=== PATIENT | male | born 1995 | race African-American/Black ===

== ENCOUNTER 2017-08-10 08:55 | Emergency (ER) | payer OTHER ==
[~2017-08-10] VITALS: Ht 182.9 cm; Wt 156.5 kg
[2017-08-10 09:00] VITALS: BP 147/96
[2017-08-10] MEDS ORDERED: IBUP400T18 PO (09:14)
--- NOTE | 2017-08-10 09:14 | PHYS DOC ---
Adult General HPI HPI Chief complaint right wrist pain History of present illness: 22-year-old male with a history of hypertension and asthma presenting to the emergency department today with right wrist pain after injuring it while at work. He was working on a tire when a tool hit his right wrist. Since the injury he has had sharp shooting pain that is mild to moderate nonradiating and without alleviating factors. It is associated with mild amount of swelling without ecchymosis. He denies any pain in his elbow more proximally. He states he has normal motor and sensation of the hand. He does report a mild amount of tingling along the lateral (ulnar) portion of his right wrist (but not in hand). Past medical history hypertension and asthma Surgeries: Appendicitis Allergies: Vicodin Social history: Nondrinker Review of systems is negative for elbow pain or shoulder pain more proximally. He denies any other injuries. All other review of systems is negative unless otherwise noted in history of present illness. ED course: 22-year-old male presenting to the emergency department with right wrist pain. Upon arrival x-rays obtained. On examination of the hand the patient has normal sensation in all nerve distributions of the hand but does endorse a mild amount of numbness along the right ulnar portion of his wrist. He has 2 second cap refill in the hand with normal motor function of the hand including the ability to make an A-OK, cross fingers and give a thumbs up. He has a mildly tender scaphoid bone on the dorsal (snuff box) aspect of his hand, not tender on the volar aspect. The elbow has normal range of motion is nontender to palpation. No other injuries identified. The patient was given ibuprofen and ice for pain control. X-rays reviewed by myself. Neg xrays. Given the mild tenderness in the snuffbox area, the patient was placed in a thumb spica splint to follow-up with his doctor in 7 days for repeat x-rays and reexamination. The patient was then discharged home in stable condition to follow up with their primary care physician. They were to return if their symptoms worsened or if they were concerned for any reason. [id number] discharge instructions and return precautions were given. Patient's questions were answered to their satisfaction. Patient is comfortable with plan. Review of Systems Review of Systems SEE ABOVE. Physical Exam Physical Exam SEE ABOVE Constitutional: Well developed, well nourished, no acute distress, non-toxic appearance. [] HENT: Normocephalic, atraumatic, bilateral external ears normal, oropharynx moist, no oral exudates, nose normal. [] Eyes: PERRLA, EOMI, conjunctiva normal, no discharge. [] Neck: Normal range of motion, no tenderness, supple, no stridor. [] Cardiovascular:Heart rate regular rhythm, no murmur [] Lungs & Thorax: Bilateral breath sounds clear to auscultation [] Abdomen: Bowel sounds normal, soft, no tenderness, no masses, no pulsatile masses. [] Skin: Warm, dry, no erythema, no rash. [] Back: No tenderness, no CVA tenderness. [] Extremities: see above. Neurologic: Alert and oriented X 3, normal motor function, normal sensory function, no focal deficits noted. [] Psychologic: Affect normal, judgement normal, mood normal. [] EKG EKG [] Radiology/Procedures Radiology/Procedures [] Course & Med Decision Making Course & Med Decision Making Pertinent Labs and Imaging studies reviewed. (See chart for details) [] Dragon Disclaimer Dragon Disclaimer This electronic medical record was generated, in whole or in part, using a voice recognition dictation system. Departure Departure: Impression: Primary Impression: Right wrist pain Disposition: 01 HOME, SELF-CARE Condition: STABLE Referrals: PCPMIRLAN[facility] (PCP) Patient Instructions: Wrist Pain, [id number] Additional Instructions: Thank you for allowing us to participate in your care today. Followup with your primary care physician in 7 days for repeat x-rays and repeat examination. Call your Primary Doctor tomorrow and inform them of your visit today. If you do not have a primary care provider you can ask for a list of our primary care providers. Return to the emergency department you have any new or concerning findings. This should be evaluated by the primary care physician and any necessary consulting services for continued management within a few days after discharge. Return to emergency room if you have any new or concerning symptoms including but not limited to fever, chills, nausea, vomiting, intractable pain, any new rashes, chest pain, shortness of air, uncontrolled bleeding, difficulty breathing, and/or vision loss. Scripts Ibuprofen (IBUPROFEN) 400 Mg Tablet 1 TAB PO PRN Q8HRS Y for PAIN, #20 TAB Prov: DEWEY STALLWORTH MD 08/10/17 DEWEY STALLWORTH MD Aug 10, 2017 09:14
--- NOTE | 2017-08-10 09:31 | RAD ---
WRIST 3V RIGHT Clinical Indication: pain Comparison: None. Findings: No acute fracture or malalignment. Joint spaces are maintained. Bony mineralization is normal for the patient's age. No significant soft tissue abnormality. No radiopaque foreign body. IMPRESSION: No acute fracture or malalignment.
[2017-08-10] MEDS ORDERED: IBUPROFEN 400 MG TABLET. PO ONE (09:40)
== END 2017-08-10 09:48 | disposition home or self-care (01) ==
LOC: ER 08:55
DX: M25.531 Pain in right wrist (principal); I10 Essential (primary) hypertension; J45.909 Unspecified asthma, uncomplicated; Z88.5 Allergy status to narcotic agent; W22.8XXA Striking against or struck by other objects, initial encounter; Y93.89 Activity, other specified; Y99.8 Other external cause status; Y92.89 Other specified places as the place of occurrence of the external cause
CPT/HCPCS: 29125; 73110; 99284-25

== ENCOUNTER 2019-03-28 05:27 | Emergency (ER) | payer SELFPAY ==
[~2019-03-28] VITALS: Ht 182.9 cm; Wt 172.4 kg
[2019-03-28 05:27] VITALS: BP 161/80
[~2019-03-28 05:27] MED LIST: IBUP400T18 PO
--- NOTE | 2019-03-28 05:38 | ED.ADGEN ---
Past History Past Medical History: Asthma, Hypertension Past Surgical History: Appendectomy Alcohol Use: None Drug Use: None Adult General Chief Complaint Chief Complaint ".. I got this spot at the top of my crack.. I ve had it before.. it got an irritation.. a little rash area..." HPI HPI Patient is a 23 year old male who presents with above hx and complaints area of cellulitis at the top of his gluteal crease. Patient states area. Patient has been present for the past 2 days. No history of trauma. No history of immunosuppression. No history of ill contacts. Patient does not remember his last tetanus. He normally follows with Dr. Dotson. No history of colitis. No history of Crohn's. Patient inflammatory bowel disorder. No other lesions on his body. Review of Systems Review of Systems Constitutional: Denies fever or chills [] Eyes: Denies change in visual acuity, redness, or eye pain [] HENT: Denies nasal congestion or sore throat [] Respiratory: Denies cough or shortness of breath [] Cardiovascular: No additional information not addressed in HPI [] GI: Denies abdominal pain, nausea, vomiting, bloody stools or diarrhea [] : Denies dysuria or hematuria [] Musculoskeletal: Denies back pain or joint pain [] Integument: Denies rash or skin lesions []except complaints of the cellulitis and gluteal crease Neurologic: Denies headache, focal weakness or sensory changes [] Endocrine: Denies polyuria or polydipsia [] All other systems were reviewed and found to be within normal limits, except as documented in this note. Family History Family History Noncontributory Current Medications Current Medications Current Medications Medications (Trade) Dose Ordered Sig/Shimon Start Time Stop Time Status Last Admin Dose Admin Diphtheria/ Tetanus/Acell Pertussis (Boostrix) 0.5 ml ONCE ONCE 03/28/19 07:00 03/28/19 06:46 DC 03/28/19 06:24 0.5 ML Trimethoprim/ Sulfamethoxazole (Bactrim Ds) 1 tab 1X ONCE 03/28/19 07:00 03/28/19 06:46 DC 03/28/19 06:24 1 TAB See nursing for home meds Allergies Allergies Allergies Coded Allergies Type Severity Reaction Last Updated Verified acetaminophen Allergy Unknown 08/10/17 Yes hydrocodone Allergy Unknown 08/10/17 Yes Physical Exam Physical Exam Constitutional: , no acute distress, non-toxic appearance. [] HENT: Normocephalic, atraumatic, bilateral external ears normal, oropharynx moist, no oral exudates, nose normal. [] Eyes: PERRLA, EOMI, conjunctiva normal, no discharge. [] Neck: Normal range of motion, no tenderness, supple, no stridor. [] Cardiovascular:Heart rate regular rhythm, no murmur [] Lungs & Thorax: Bilateral breath sounds clear to auscultation [] Abdomen: Bowel sounds normal, soft, no tenderness, no masses, no pulsatile masses. [] Obese. Skin: Warm, dry, no erythema, no rash. [] Except area of cellulitis as per history of present illness Back: No tenderness, no CVA tenderness. [] Extremities: No tenderness, no cyanosis, no clubbing, ROM intact, no edema. [] Neurologic: Alert and oriented X 3, normal motor function, normal sensory function, no focal deficits noted. [] Psychologic: Affect anxious, judgement normal, mood normal. [] Current Patient Data Vital Signs Vital Signs Date Time Temp Pulse Resp B/P (MAP) Pulse Ox O2 Delivery O2 Flow Rate FiO2 03/28/19 05:27 98.7 90 18 96 Room Air EKG EKG [] Radiology/Procedures Radiology/Procedures [] Course & Med Decision Making Course & Med Decision Making Pertinent Labs and Imaging studies reviewed. (See chart for details). Use warm salt water soaks or compresses 4 times a day. After compress or soak apply Polysporin to area or times a day. Take Bactrim DS twice a day. Follow up with Dr. Dotson. Return if any concerns. [] Final Impression Final Impression 1. Cellulitis[] Dragon Disclaimer Dragon Disclaimer This electronic medical record was generated, in whole or in part, using a voice recognition dictation system. Dragon Disclaimer This chart was dictated in whole or in part using Voice Recognition software in a busy, high-work load, and often noisy Emergency Department environment. It may contain unintended and wholly unrecognized errors or omissions. JONNY PEREIRA MD Mar 28, 2019 05:38
[2019-03-28] MEDS ORDERED: SULF1TAB24 PO (06:03)
[2019-03-28] MEDS ORDERED: DIPHTH,PERTUSS(ACELL),TET TOX 0.5 ML DISP.SYRIN. VAX IM ONE (07:00)
[2019-03-28] MEDS ORDERED: SMZ/TMP 800/160MG TABLET. PO ONE (07:00)
== END 2019-03-28 06:25 | disposition home or self-care (01) ==
LOC: ER 05:27
DX: L03.317 Cellulitis of buttock (principal); J45.909 Unspecified asthma, uncomplicated; I10 Essential (primary) hypertension; Z88.6 Allergy status to analgesic agent; Z88.5 Allergy status to narcotic agent
CPT/HCPCS: 90471; 90715; 99283